=== PATIENT | female | born 1995 | race Caucasian/White ===

== ENCOUNTER 2025-04-30 11:16 | Inpatient (IN) | payer OTHER ==
[~2025-04-30] VITALS: Wt 59.5 kg
[2025-04-30] MEDS ORDERED: Calcium Carbonate 500 MG Tab Chew PO PRN ×3 (13:10→17:25)
[2025-04-30] MEDS ORDERED: Aluminum Hydroxide 320MG/5ML 473 ML PO PRN ×3 (13:15→17:25)
[2025-04-30] MEDS ORDERED: OLANZapine ODT 10 MG Tab MM PRN ×3 (13:15→17:25)
[2025-04-30] MEDS ORDERED: TraZODone HCl 50 MG Tab PO PRN ×3 (13:15→17:30)
[2025-04-30] MEDS ORDERED: Ondansetron 4 MG SoluTab MM PRN ×3 (13:15→17:30)
[2025-04-30] MEDS ORDERED: HydrOXYzine Pamoate 50 MG Cap PO PRN ×3 (13:15→17:20)
[2025-04-30] MEDS ORDERED: Ibuprofen 600 MG Tab PO PRN ×3 (13:15→17:25)
[2025-04-30] MEDS ORDERED: Melatonin 3 MG Tab PO PRN ×3 (13:20→17:20)
[2025-04-30] MEDS ORDERED: Polyethylene Glycol 3350 17 gm PO PRN ×3 (13:20→17:30)
[2025-04-30] MEDS ORDERED: Acetaminophen 325 MG TABLET PO PRN ×3 (13:20→17:20)
[2025-04-30] MEDS ORDERED: LORazepam 2 MG Tab PO PRN (17:25)
[2025-04-30] MEDS ORDERED: DiphenhydrAMINE HCl 50 MG Cap PO PRN (17:25)
[2025-04-30] MEDS ORDERED: LORazepam 2 MG/ML 1ML Injection IM PRN (17:25)
[2025-04-30] MEDS ORDERED: Haloperidol Lactate Inj. 5 MG/ML Injection IM PRN (17:30)
[2025-04-30] MEDS ORDERED: Haloperidol 5 MG Tab PO PRN (17:30)
[2025-04-30] MEDS ORDERED: DiphenhydrAMINE HCl 50 MG/ML 1ML Vial IM PRN (17:30)
[2025-04-30] MEDS ORDERED: Nicotine Polacrilex 2 MG Gum PO PRN (18:00)
--- NOTE | 2025-04-30 18:25 | NUR ---
SHIFT SUMMARY/ADMISSION NOTE PT AxOx4. COOPERATIVE WITH CARE, BUT NEEDING FREQUENT REDIRECTION AND REASSURANCE SHE BECOMES EASILY TEARFUL WITH LOUD/ELEVATED EMOTIONS DURING INTERACTIONS. PRN FOR AGITATION ADMINISTERED WITH SOME REPORTED RELIEF. PT'S ADMISSION IS NOT COMPLETE AT THIS TIME. WILL NOTIFY ONCOMING SHIFT STAFF. PT IS ON AN INVOLUNTARY HOLD OUT OF [facility]. SHE DENIES SI/HI AND AVTH UPON ASSESSMENT, BUT REPORTS THAT SHE HAS "CHRONIC SUICIDALITY" AND SHE HAS CYCLED WITH HER MENTAL HEALTH FOR THE PAST YEAR WITH POOR ACCESS TO OUTPATIENT RESOURCES AND FOLLOW UP BEING A TRIGGER FOR HER. PT WAS JUST ON THE PHONE WITH HER MOTHER IN THE SENSORY ROOM. PT APPEARS/SOUNDS UPSET AND TEARFUL AND WAS ASKED TO END THE CALL AND COME TO DINNER. PT WAS COMPLIANT WITH REQUEST, BUT IS HESITANT TO BE AROUND PEERS. REASSURANCE PROVIDED BY THIS RN.
--- NOTE | 2025-04-30 18:44 | NUR ---
FAMILY CONTACT INFO MOMSAMMY, LIVES IN [place] [phone]
--- NOTE | 2025-04-30 20:54 | NUR ---
PT AGITATED, CRYING OFF AND ON. BECOMES ANIMATED WITH ELEVATED VOICE - REMOVED TO VISITOR ROOM TO TALK WITH STAFF. PT WITH PRESSURED SPEECH, CONSISTENTLY STATING NOONE HAS EVER HELPED HER AND SHE IS TIRED OF TRYING TO FIGURE THINGS OUT ON HER OWN. NO INSIGHT TO OWN BEHAVIORS CAUSING ISSUES. FIXATED ON FINANCIAL STATUS, MOTHER, AND HER CAR. WILL NOT ANSWER QUESTIONS FOR ADMIT. IMMEDIATELY CHANGES SUBJECT TO HOW SHE NEVER GETS HELP AND ALL WE WANT TO DO IS GET A PAYCHECK AND NOT HELP THE PATIENTS. REFUSES ALL OFFER OF MEDICATIONS FOR AGITATION OR ANXIETY. STATES SHE JUST WANTS TO BE LEFT ALONE - LEFT ROOM TO ATTEND SNACK. HAD SNACK AND THEN WENT TO ROOM.
--- NOTE | 2025-04-30 21:47 | NUR ---
PT CONTINUED WITH AGITATION THIS EVENING. DID ASK FOR A SLEEPING PILL AROUND 2119 AND STATED WE WERE NOT FOLLOWING OUR SCHEDULE. INSTRUCTED PATIENT SHE HAD REFUSED MED EARLIER AND SHE BECAME INCREASINGLY IRRITATED WITH THIS RN.
--- NOTE | 2025-04-30 23:29 | NUR ---
MID SHIFT SUMMARY NOTE FOR REPORT OFF: PATIENT HAS SLEPT SINCE RECEIVING TRAZADONE. PRIOR TO THAT CONTINUED TO NOT ANSWER QUESTIONS FOR ADMISSION FORMS AND COMPLETION. WOULD NOT FOLLOW DIRECTED CONVERSATION AND WOULD TURN IT TO HOW THE HEALTHCARE SYSTEM HAS FAILED HER REPEATEDLY. PT NOT ENGAGED IN RECEIVING MENTAL HEALTH CARE.
--- NOTE | 2025-05-01 01:10 | NUR ---
assumed care of patient at 0030. She is currently in her bed sleeping. Will continue close monitoring every 15 minutes for comfort and safety
--- NOTE | 2025-05-01 04:14 | NUR ---
PATIENT SLEPT WELL AFTER RECEIVING TRAZODONE EARLY LAST EVENING UNTIL SHE WOKE UP ASKING FOR A CONTACT CASE AND SOME SOLUTION. aFTER CONTACTING THE PHARMACY, THIS RN EXPLAINED THAT WE DID NOT HAVE THOSE SUPPLIES, AND THEY WOULD NEED TO BE PICKED UP AT AN OUTSIDE DRUG STORE IN THE MORNING, THE PATIENT BECAME VERY ANGRY, AND STATED SHE WANTED AN ATIVAN NOW. tHIS rn CAME OUT OF THE MED ROOM WITH A ZYPREXA AND EXPLAINED THAT ATIVAN ONLY CAME WITH A COMBINATION OF OTHER DRUGS IN THE WAY IT WAS ORDERED. pATIENT AGREED TO TAKE THE ZYPREXA, AND HAS BEEN SLEEPING SINCE THEN. WILL CONTINUE CLOSE MONITORING EVERY 15 MINUTES FOR SAFETY AND COMFORT.
[2025-05-01 07:40] LABS: CHOL/HDL RATIO 2.6; Cholesterol 176 mg/dL (50-200); HDL Cholesterol 67 mg/dL (>39); LDL/HDL RATIO 1.4; Low Density Lipoprotein Chol 93 mg/dL (0-110); Triglycerides 80 mg/dL (30-140); Very Low Density Lipoprot Chol 16 mg/dL (6-28)
[2025-05-01 07:57] VITALS: BP 105/69
[2025-05-01 08:37] VITALS: BP 105/69
[2025-05-01] MEDS ORDERED: Multivitamins 1 Tab PO SCH ×3 (09:00)
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
--- NOTE | 2025-05-01 18:46 | NUR ---
Shift Assessment note: Please also see earlier note from today- The majority of this shift, the patient endorced anxiety, was tearful and requested PRN's as she was able. Patient did talk to her mom on the phone this afternoon which exacerbated her anxiety. The provider placed orders today to help alleviate symptoms. She denies being suicidal but admits to chronic SI. She is not experiencing AH, VH, or sensations. Patient would like help with discharge planning as she isn't sure that she wants to return to [place] upon Discharge.
[2025-05-01] MEDS ORDERED: OLANZapine 10 MG Tab PO SCH (21:00)
[2025-05-01] MEDS ORDERED: OLANZapine 5 MG Tab PO SCH (21:00)
[2025-05-01 21:07] VITALS: BP 111/74
--- NOTE | 2025-05-02 04:08 | NUR ---
Patient was very irritable with staff with each encounter throughout the evening. She did come out of her room for evening snack. And then early in the morning, came out for her PRN Zyprexa complaining about how she was going to sleep with every 15 minute checks. will continue close monitoring with quiet 15 minute checks for both comfort and safety
--- NOTE | 2025-05-02 08:13 | NUR ---
[facility]: Sarah Aguirre ([phone]) called from [facility] regarding this patient. She wanted to know if her hold was dropped. She stated there is a Trial on 05/03 at 2pm in [facility] and that an atty has been appointed to this patient. Atty name Prema Donohue. Attempted to call Sarah back. She did not answer phone. Will attempt again later, and collect more info at TEAM meeting.
--- NOTE | 2025-05-02 08:29 | NUR ---
Fax number for [facility] (send release of hold paperwork if release is signed on 05/04) [phone].
--- NOTE | 2025-05-02 17:13 | NUR ---
Shift Summary: Patient is alert and orientated with anxiety and tears through out the shift. patient did work with Sylvie Covarrubias for her discharge planning but does not appear to be satisfied with the plan. Patients drop hold is to be faxed to [facility] when she is released. Fax number exists in a previous note. this is the agency who works with the court holds/civil commits. Patient denied HI, Suicidal intent and hallucinations today. She did exhibit safe behaviours with no harm to self. Tomorrow the patient plans to speak with Sylvie and work on more details of her discharge plan.
[2025-05-02 19:46] VITALS: BP 104/73
--- NOTE | 2025-05-02 23:57 | NUR ---
MID SHIFT SUMMARY Patient much more calm this evening, Alert and oriented times four. Still tearful while asking about medications and also how she will get home. Opted to give patient 10mg Zyprexa at HS as she was getting more and more distraught about her discharge and complaining about what she perceives as a lack of help and competence in the field of mental health in general. Patient has been sleeping since about 2129. Will continue close observation every 15 minutes for safety and comfort
--- NOTE | 2025-05-03 04:04 | NUR ---
SHIFT SUMMARY ASSUMED CARE AT 0000, PATIENT APPEARS TO BE SLEEPING WELL T/O NIGHT RESP EVEN AND UNLABORED. CONTINUE TO MONITOR Q15MIN
--- NOTE | 2025-05-03 06:18 | NUR ---
PATIENT CONCERNS PATIENT APPROACHING NURSING DESK VERBALIZED CONCERNS REGARDING NIGHTMARES WITH ZYPREXA. PATIENT ALSO VERBALIZING CONCERNS WITH PRIMARY CARE AND PSYC CARE AFTER DC. PATIENT ENCOURAGED TO TALK WITH DISCHARGE PLANNING AND DOCTOR LEEROY REGARDING HER CONCERNS. PATIENT VERBALIZED FRUSTRATION WITH INFORMATION BEING SHARED WITH HER MOTHER, YET WHEN OFFERED TO HAVE HER MOTHER REMOVED FROM LIST OF PEOPLE THAT CAN GET INFORMATION, DECLINED NEED FOR THAT.
--- NOTE | 2025-05-03 08:45 | NUR ---
JEWELRY NOSE RING IN LEFT NOSTRIL.
--- NOTE | 2025-05-03 18:15 | NUR ---
SHIFT SUMMARY PT DENIES SI, HI, AVTH. PT EXPRESSED CONCERN ABOUT POST DISCHARGE PLANS. WAS NOT REDIRECTIBLE AND STATED "I DON'T WANT TO TALK ANYMORE". WAS TEARFUL AT TIMES DURING THE FIRST HALF OF THE SHIFT. LAST HALF OF SHIFT, PT WAS PLEASANT AND COOPERATIVE. PT OUTSIDE INTERACTING W/ PEERS. VOLUNTEER PAPERWORK SIGNED.
[2025-05-03 19:32] VITALS: BP 122/71
--- NOTE | 2025-05-04 04:53 | NUR ---
SHIFT SUMMARY: PATIENT WAS ON THE PATIO AT THE BEGINNING OF THE SHIFT, INTERACTING PLEASANTLY WITH STAFF AND PEERS. SHE HAS A PIERCING IN HER LEFT NOSTRIL WITH A NOSE RING THAT SHE CANNOT REMOVE. IT IS INTACT WITH NO S/SX THAT SHE IS TRYING TO REMOVE IT. SHE REQUESTED NICOTINE GUM AT THE BEGINNING OF THE SHIFT, WHICH WAS GIVEN. SHE WAS IN A DECENT MOOD, STATING, "I'M FEELING BETTER BECAUSE I'M GOING HOME TOMORROW" (05/04/25). SHE DENIED SUICIDAL IDEATION, THOUGHTS OF SELF HARMING AND A/V HALLUCINATIONS. SHE PARTICIPATED IN SNACK AND WRAP UP GROUP AT 2030. SHE WENT TO BED AFTER EVENING MEDICATION ADMINISTRATION AND SNACK, AND WAS NOTED TO BE RESTING QUIETLY WITH EYES CLOSED AND RESPIRATIONS CONFIRMED FOR THE REMAINDER OF THE SHIFT. CONTINUING TO MONITOR FOR SAFETY WITH Q15 MINUTE CHECKS.
[2025-05-04 09:36] VITALS: BP 117/85
[2025-05-04] MEDS ORDERED: NICO2 PO (09:55)
[2025-05-04] MEDS ORDERED: OLAN5 PO (09:55)
--- NOTE | 2025-05-04 10:46 | NUR ---
NURSING DISCHARGE NOTE PT AA&O TO PERSON, PLACE AND SITUATION. SHE DENIES SI, AVH. PT IS REFUSING MEDICAL TRANSPORT. SHE REPORTS THAT SHE WOULD LIKE TO LEAVE AGAINST MEDICAL ADVICE. CAMILA RN AND THIS RN SPENT MORE THAN AN HOUR TOTAL EDUCATING PATIENT ON RISK OF LEAVING AMA IN A TOWN THAT SHE DOES NOT KNOW. SHE WAS COUNSELED ABOUT THE OUTSIDE TEMP, AND BODILY RISK. SHE REPORTS THAT SHE HAS MONEY AND WILL BE ABLE TO NAVIGATE HER WAY HOME. TRUNG MOYA NOTIFIED. AMA PAPERWORK SIGNED. DISCHARGE MEDICATIONS, SMOKING CEASATION AND HOW TO ACCESS MEDICAL RECORDS REVIEWED WITH PT. PT ENCOURAGED TO FOLLOW UP WITH PCP AND BEHAVIORAL HEALTH. BELONGINGS RETURNED AND PT DISCHARGED TO STREET @1018
== END 2025-05-04 10:15 | disposition home or self-care (01) | DRG 885 ==
LOC: BHU 11:16
PROVIDERS: ADMIT Student in an Organized Health Care Education/Training Program
DX: F39 Unspecified mood [affective] disorder (principal); F84.0 Autistic disorder; Z56.0 Unemployment, unspecified
CPT/HCPCS: 36415; 80061; 83036; A9270